=== PATIENT | male | born 1940 | race Caucasian/White ===

== ENCOUNTER 2017-05-23 07:43 | Emergency (ER) | payer OTHER ==
[~2017-05-23] VITALS: Ht 175.3 cm; Wt 74.4 kg
[~2017-05-23 07:43] MED LIST: ALBU18HF PO; ALLO100T30 PO; DIPH25CA61 PO; FLUT12AE2 INH; FLUT9.9S NAS; MONT10TA9 PO; OMEP20CA9 PO
[2017-05-23] MEDS ORDERED: ALBUTEROL SULFATE 2.5 MG/3 ML NPPB ONE (09:00)
[2017-05-23 09:20] LABS: HEMATOCRIT 46.2 % (39.2-51.8); HEMOGLOBIN 15.6 g/dL (13.7-18.0); WHITE BLOOD COUNT 10.5 x10^3/uL (3.4-10)
[2017-05-23 09:30] LABS: BLOOD UREA NITROGEN 11 mg/dL (7-18)
[2017-05-23] MEDS ORDERED: ALBUTEROL SULFATE 2.5 MG/3 ML ONE (10:00)
[2017-05-23 10:31] VITALS: BP 124/76
== END 2017-05-23 10:40 | disposition home or self-care (01) ==
LOC: ED 08:54
DX: J45.31 Mild persistent asthma with (acute) exacerbation (principal); Z87.891 Personal history of nicotine dependence
CPT/HCPCS: 36415; 71020; 80048; 85025; 93005; 94640; 99285; J7512; J7613

== ENCOUNTER → 2017-06-23 | Outpatient (CLI) | payer OTHER | END | disposition home or self-care (01) | LOC: CARD 12:30 | PROVIDERS: ATTEND Allergy & Immunology Allergy | DX: J45.30 Mild persistent asthma, uncomplicated (principal) | CPT/HCPCS: 94060; 94726; 94729 ==

== ENCOUNTER 2019-02-16 18:39 | Emergency (ER) | payer MEDICARE ==
[~2019-02-16] VITALS: Ht 175.3 cm; Wt 75.2 kg
[2019-02-16 23:32] VITALS: BP 135/63
== END 2019-02-17 00:17 ==
LOC: ED 02-17 00:11
DX: L03.116 Cellulitis of left lower limb (principal); J45.909 Unspecified asthma, uncomplicated
CPT/HCPCS: 36415; 71046; 80053; 83880; 85025; 93971; 96372; 99284; S0077

== ENCOUNTER 2019-11-12 22:22 | Emergency (ER) | payer MEDICARE ==
[~2019-11-12] VITALS: Ht 170.2 cm; Wt 74.7 kg
[~2019-11-12 22:22] MED LIST changes: +AZEL205.2 NAS; +MONT10TA11 PO; +MONT10TA6 PO; -MONT10TA9 PO
[2019-11-12 22:24] VITALS: BP 141/72
--- NOTE | 2019-11-12 22:34 | NUR ---
PATIENT PRESENTS TO THE ED WITH C/O BILATERAL UPPER EXTREMITY REDNESS. REPORTS SYMPTOMS STARTED 3 DAYS AGO. DENIES ANY INJURY, TRAUMA, FALL, FEVERS, OR PAIN. REPORTS HX OF CELLULITIS. DENIES HX OF DM.
[2019-11-12] MEDS ORDERED: CLINDAMYCIN 300 MG CAPSULE ONE (22:48)
[2019-11-12] MEDS ORDERED: CLINDAMYCIN 300 MG CAPSULE PO ONE (23:00)
== END 2019-11-12 23:14 | disposition home or self-care (01) ==
LOC: ED 22:36
DX: L03.114 Cellulitis of left upper limb (principal); L03.113 Cellulitis of right upper limb; J45.909 Unspecified asthma, uncomplicated; Z90.49 Acquired absence of other specified parts of digestive tract
CPT/HCPCS: 99283